=== PATIENT | female | born 1945 | race Asian ===

== ENCOUNTER → 2016-10-16 | Outpatient (CLI) | payer OTHER ==
[2016-10-16 16:05] LABS: BASO % 0.5 %; BASO ABS # 0.03 K/uL (0-0.2); COMPLETE YES; EOS % 1.8 %; HEMATOCRIT 38.6 % (37-47); IG% 0.2 %; LYMPH % 34.1 %; LYMPH ABS # 2.23 K/uL (1.2-3.4); MEAN CELL VOLUME 97.2 fL (80-100); MEAN CORPUSCULAR HGB CONC 32.9 g/dl (32-36); MEAN PLATELET VOLUME 10.5 fL (7.4-10.4); NEUT % 54.4 %; PLATELET COUNT 219 K/uL (130-400); RED BLOOD COUNT 3.97 M/uL (4.2-5.4); WHITE BLOOD COUNT 6.54 K/uL (4.8-10.8)
[2016-10-16 16:12] LABS: INR 0.9 (0.9-1.1)
[2016-10-16 16:14] LABS: ALT/SGPT 27 U/L (12-78); AST/SGOT 17 U/L (15-37); BLOOD UREA NITROGEN 14 mg/dl (7-18); BUN/CREATININE RATIO 21.2 (10-20); CALCIUM 9.1 mg/dl (8.5-10.1); CARBON DIOXIDE 31 mmol/L (21-32); CHLORIDE 104 mmol/L (98-107); CREATININE 0.67 mg/dl (0.60-1.20); GLUCOSE 123 mg/dl (70-99); POTASSIUM 4.2 mmol/L (3.5-5.1); SODIUM 140 mmol/L (136-145)
[2016-10-16 16:17] LABS: ALB/GLOB RATIO 1.3 (0.9-2); ALKALINE PHOSPHATASE 88 U/L (45-117)
== END | disposition home or self-care (01) ==
LOC: C.LABSPEC 15:19
PROVIDERS: ATTEND Family Medicine
DX: Z01.812 Encounter for preprocedural laboratory examination (principal)

== ENCOUNTER → 2017-01-14 | Outpatient (CLI) | payer OTHER ==
--- NOTE | 2017-01-15 07:36 | MAMMOGRAPHY REPORT ---
BILATERAL DIGITAL SCREENING MAMMOGRAM WITH CAD: 01/14/2017 CLINICAL HISTORY: Routine screening. Patient has no complaints. TECHNIQUE: Bilateral CC and MLO views were obtained. Current study was also evaluated with a Comput er Aided Detection (CAD) system. COMPARISON: Comparison is made to exams dated: 11/06/2015 mammogram, 10/28/2014 mammogram, 10/25/2013 m ammogram, 05/28/2012 mammogram, 04/11/2011 mammogram, and 02/01/2010 ultrasound - [facility]. BREAST COMPOSITION: The tissue of both breasts is heterogeneously dense, which may obscure small mas ses. FINDINGS: The parenchymal pattern is similar to prior mammograms. There are scattered stable benign coarse and round calcifications. No developing mass, architectural distortion or cluster of suspici ous microcalcifications is seen in either breast. IMPRESSION: ACR BI-RADS CATEGORY 2: BENIGN There is no mammographic evidence of malignancy. A 1 year screening mammogram is recommended. The pa tient will receive written notification of the results. Approximately 10% of breast cancers are not detected with mammography. A negative mammographic report should not delay biopsy if a clinically suggestive mass is present. Maryan Mukherjee M.D. ay/:01/14/2017 16:25:45 Operating Room Manager: Eunice ELLIOTT(Val)(Sheila), [facility] letter sent: Normal 1/2 BI-RADS Code: ACR BI-RADS Category 2: Benign
== END | disposition home or self-care (01) ==
LOC: C.MAMM 14:00
PROVIDERS: ATTEND Obstetrics & Gynecology
DX: Z12.31 Encounter for screening mammogram for malignant neoplasm of breast (principal)

== ENCOUNTER → 2017-06-17 | Outpatient (CLI) | payer OTHER ==
[2017-06-17 17:51] LABS: BASO % 0.7 %; BASO ABS # 0.04 K/uL (0-0.2); EOS % 2.3 %; EOS ABS # 0.13 K/uL (0-0.5); HEMOGLOBIN 12.8 g/dL (12.0-16.0); LYMPH ABS # 2.13 K/uL (1.2-3.4); MEAN CORPUSCULAR HEMOGLOBIN 32.3 pg (25-34); MEAN CORPUSCULAR HGB CONC 33.7 g/dl (32-36); MEAN PLATELET VOLUME 10.4 fL (7.4-10.4); MONO % 5.9 %; MONO ABS # 0.34 K/uL (0.11-0.59); NEUT % 54.1 %; NEUT ABS # 3.12 K/uL (1.4-6.5); PLATELET COUNT 211 K/uL (130-400); RED CELL DISTRIBUTION WIDTH CV 13.5 % (11.5-14.5); RED CELL DISTRIBUTION WIDTH SD 47.3 fL (36.4-46.3); WHITE BLOOD COUNT 5.76 K/uL (4.8-10.8)
[2017-06-17 17:55] LABS: ALBUMIN 3.8 gm/dl (3.4-5.0); ALT/SGPT 28 U/L (12-78); AST/SGOT 19 U/L (15-37); BLOOD UREA NITROGEN 12 mg/dl (7-18); CALCIUM 8.5 mg/dl (8.5-10.1); CARBON DIOXIDE 29 mmol/L (21-32); CHOLESTEROL 177 mg/dl (0-200); CREATININE 0.79 mg/dl (0.60-1.20); GLUCOSE 103 mg/dl (70-99); POTASSIUM 4.3 mmol/L (3.5-5.1); SODIUM 139 mmol/L (136-145)
[2017-06-17 18:06] LABS: ALKALINE PHOSPHATASE 80 U/L (45-117); LDL CHOLESTEROL CALCULATED 76 mg/dl; TOTAL PROTEIN 7.6 gm/dl (6.4-8.2)
[2017-06-18 06:09] LABS: HEMOGLOBIN A1C 6.3 % (4.5-5.6)
== END | disposition home or self-care (01) ==
LOC: C.LABBC 12:12
PROVIDERS: ATTEND Nurse Practitioner Adult Health
DX: E78.5 Hyperlipidemia, unspecified (principal); I10 Essential (primary) hypertension; R73.03 Prediabetes; Z00.00 Encounter for general adult medical examination without abnormal findings; E55.9 Vitamin D deficiency, unspecified

== ENCOUNTER 2022-04-17 19:45 | Inpatient (IN) ==
--- NOTE | 2022-04-17 20:07 | Emergency Department Note ---
Impression & Plan Acute hyponatremia, Gastroenteritis ED Provider Note Provider: Joe Wilde MD DATE OF SERVICE: 04/17/2022 CHIEF COMPLAINT: Nausea vomiting fatigue, abnormal blood work HISTORY OF PRESENT ILLNESS: Patient is a 76-year-old female history of type 2 diabetes, and hypertension reporting for the past week and a half or so she has had nausea and vomiting. Not eating and drinking well but denies to me any abdominal pain. Reports she has not been eating or drinking that well. Has noted no diarrhea. States her stools were initially dark but have lightened up the last day or so. Given her continued symptoms without sick contact did go and see her doctors office today. Reports has been feeling fatigued but has not passed out. Denies chest pain or shortness of breath. Had a negative home COVID test. Blood work today showed significant hyponatremia and was called back and referred here for evaluation. Reports taking her blood pressure medicine but her blood pressure has been poorly controlled with recent. PAST MEDICAL HISTORY: As noted above MEDICATIONS: Reviewed home medications includes ARB SOCIAL HISTORY: Non-smoker PHYSICAL EXAM: GENERAL: alert and oriented in no acute distress on stretcher Head: normocephalic and atraumatic EYES: No injection, discharge or icterus. NECK: Trachea midline. ENT: Mucous membranes pink and moist. LUNGS: Airway patent. No retractions. Breath sounds clear with good air entry bilaterally. HEART: Regular rate and rhythm. No chest wall tenderness ABDOMEN: Soft and non-tender, without guarding or rebound. No masses appreciated SKIN: Acyanotic, warm, dry, without rashes EXTREMITIES: Without swelling, tenderness or deformity NEUROLOGICAL: No focal deficits. No aphasia. No facial droop or slurred speech. Ambulatory. EK bpm normal sinus rhythm. No PVC or PAC. No acute ST segment elevation or depression with a QTc of 452. CONTINUOUS CARDIAC MONITORING: was ordered and showed a heart rate of 70s bpm in normal sinus Patient's laboratory studies reviewed. Differential includes gastroenteritis, infection, dehydration, metabolic abnormality, hypo/hyperglycemia, electrolyte disturbance, anemia, as well as other pathologies. IMPRESSION/MEDICAL DECISION MAKING: Patient denies any abdominal pain. Seen in the outpatient setting with a week and a half of symptoms. Fatigue with nausea and vomiting. Slight nausea now. Given some Zofran. Repeat blood work to confirm severe hyponatremia which is new. Did send osm. Urinalysis ordered. Is on an ARB. Decreased intake. Started on some gentle IV fluid rehydration. Consider CT of the abdomen pelvis but given her benign abdominal exam and no report of pain to me will defer at this time. No seizure activity or significant altered mental status at this point likely. Declines rectal exam. Hemoglobin stable. Doubt significant GI bleed. Confirmed sodium of 121. Started on some slow IV fluid hydration. Minimal troponin of 15.3 but denying active chest pain. No significant EKG changes. Doubt any significance. Lipase minimally elevated but likely co nsistent more with a gastroenteritis. Not having severe diarrhea like colitis or C. difficile. At this point given her significant low new sodium discuss staying for further care hospital. Hospitalist was contacted and discussed the case with him. DIAGNOSIS: Acute hyponatremia, gastroenteritis DISPOSITION: Hospitalist will evaluate Patient was agreeable with this plan. Past Med/Surg History Medical History (Updated 04/17/22 @ 21:42 by Joe Wilde M.D.) Arthritis Hyperlipidemia Hypertension Osteoporosis Postmenopausal Type 2 diabetes mellitus Vitamin D deficiency Surgical History History of carpal tunnel surgery RIGHT HAND History of cataract surgery BOTH EYES 2017 Family History Grandmother (Paternal) No problems noted. Mother Cardiac disorder Hypertension Myocardial infarction Brother Diabetes Hypertension Sister Hypertension Denies family history of Ovarian cancer Prostate cancer Breast cancer Lung cancer Colorectal cancer Stroke Social History Smoking Status: Never smoker Second Hand Exposure: No; Hx Alcohol Use: No Hx Substance Use: No Preferred Language: Kazakh Communication Ability: Effective Visual Impairment: Diminished Hearing Ability: Normal Surgical Services Manager Required: No marital status: / Current Living Situation: Alone current occupational status: retired Feels Safe at Home: Yes Childhood Exposure to Second-Hand Smoke: No caffeine: Yes Dental Care, Regularly: Yes Physical Activity Frequency: 3-4 Times per Week Seatbelt Use: always Sunscreen Use: Yes Do you think of yourself as: straight/heterosexual Allergies Allergies Allergy/AdvReac Type Severity Reaction Status Date / Time pollen extracts Allergy Intermediate WATERY Verified 04/17/22 20:29 EYES, RUNNY NOSE, SNEEZING Home Meds Home Medications Medication Instructions Recorded Confirmed calcium carbonate 500 mg calcium 500 mg PO DAILY 07/20/18 04/17/22 (1,250 mg) chewable tablet (Calcium 500) multivitamin (Multiple Vitamins 1 tab PO DAILY 07/20/18 04/17/22 tablet) ascorbic acid (vitamin C) 500 mg 500 mg PO BID 11/30/19 04/17/22 capsule cholecalciferol (vitamin D3) 25 2,000 unit PO DAILY 11/30/19 04/17/22 mcg (1,000 unit) tablet coenzyme Q10 100 mg capsule 100 mg PO DAILY 11/30/19 04/17/22 atorvastatin 10 mg tablet 10 mg PO HS 04/17/22 04/17/22 magnesium 250 mg tablet 250 mg PO HS 04/17/22 04/17/22 telmisartan 40 mg tablet 40 mg PO HS 04/17/22 04/17/22 Previous Rx's Medication Instructions Recorded OneTouch Ultra2 Meter #1 ea 03/24/19 (blood-glucose meter) lancets 33 gauge (OneTouch Delica #100 ea 12/17/21 Lancets) ondansetron 4 mg disintegrating 4 mg PO Q8H PRN nausea and 04/17/22 tablet vomiting #20 tabs pantoprazole 40 mg tablet,delayed 40 mg PO DAILY #30 tabs 04/17/22 release (Protonix) Results & Data (ED) Vital Signs Vital Signs - 24 hr 04/17/22 19:50 04/17/22 21:06 04/17/22 21:08 Temperature 36.5 C Temperature Source Temporal Artery Scan Pulse Rate 82 72 Pulse Rate [Left Radial] 71 Pulse Rhythm [Left Radial] Regular Pulse Strength [Left Radial] Normal Respiratory Rate 18 12 Respiratory Effort / Characteristics Non-Labored Spontaneous Non-Labored Spontaneous Respiratory Depth Normal Normal Respiratory Pattern Regular Regular Blood Pressure 194/85 H Blood Pressure [Right Arm] 149/71 H Blood Pressure Mean 121 Blood Pressure Mean [Right Arm] 97 Blood Pressure Position Sitting Pulse Oximetry 98 98 Oxygen Delivery Method Room Air Room Air Sepsis Recent Fever Within 48 Hours No Sepsis New/Unexplained Change in Mental Status N/A Sepsis Action Taken by Nursing No Action Required 04/17/22 21:54 04/17/22 22:43 Temperature Temperature Source Pulse Rate Pulse Rate [Left Radial] 71 71 Pulse Rhythm [Left Radial] Regular Regular Pulse Strength [Left Radial] Normal Normal Respiratory Rate 12 14 Respiratory Effort / Characteristics Non-Labored Spontaneous Non-Labored Spontaneous Respiratory Depth Normal Normal Respiratory Pattern Regular Regular Blood Pressure Blood Pressure [Right Arm] 158/76 H 156/74 H Blood Pressure Mean Blood Pressure Mean [Right Arm] 103 101 Blood Pressure Position Pulse Oximetry 99 99 Oxygen Delivery Method Room Air Room Air Sepsis Recent Fever Within 48 Hours Sepsis New/Unexplained Change in Mental Status Sepsis Action Taken by Nursing Laboratory Data 04/17/22 20:47 Lab Results 04/17/22 04/17/22 04/17/22 Range/Units 20:14 20:14 20:14 Sodium (136-145) mmol/L Potassium (3.5-5.1) mmol/L Chloride (98-107) mmol/L Carbon Dioxide (21-32) mmol/L Anion Gap (3-11) BUN (6-23) mg/dl Creatinine (0.6-1.2) mg/dl Est Cr Clr Drug Dosing ml/min Est GFR ( Amer) ml/min Est GFR (Non-Af Amer) ml/min BUN/Creatinine Ratio (10-20) Glucose (70-99(Fasting)) mg/dl Osmolality 261 L (280-300) mOsm/kg Calcium (8.5-10.1) mg/dl Magnesium 1.9 (1.7-2.4) mg/dl Total Bilirubin (0.2-1.0) mg/dl AST (13-39) U/L ALT (7-52) U/L Alkaline Phosphatase (34-104) U/L Troponin I High Sens 15.3 H (0-14) pg/ml Total Protein (6.0-8.3) gm/dl Albumin (3.4-5.0) gm/dl Globulin (2.5-4.0) gm/dl Albumin/Globulin Ratio (0.9-2) Lipase 132 H (11-82) U/L TSH 0.875 (0.300-4.500) uIu/ml SARS-CoV-2, RNA, NAAT (NEGATIVE) 04/17/22 04/17/22 Range/Units 20:47 21:30 Sodium 121 L (136-145) mmol/L Potassium 4.3 (3.5-5.1) mmol/L Chloride 89 L (98-107) mmol/L Carbon Dioxide 27 (21-32) mmol/L Anion Gap 5 (3-11) BUN 8 (6-23) mg/dl Creatinine 0.70 (0.6-1.2) mg/dl Est Cr Clr Drug Dosing 62.1 ml/min Est GFR ( Amer) 98.9 ml/min Est GFR (Non-Af Amer) 85.4 ml/min BUN/Creatinine Ratio 11.4 (10-20) Glucose 217 H (70-99(Fasting)) mg/dl Osmolality (280-300) mOsm/kg Calcium 8.9 (8.5-10.1) mg/dl Magnesium (1.7-2.4) mg/dl Total Bilirubin 0.7 (0.2-1.0) mg/dl AST 23 (13-39) U/L ALT 21 (7-52) U/L Alkaline Phosphatase 63 (34-104) U/L Troponin I High Sens (0-14) pg/ml Total Protein 7.2 (6.0-8.3) gm/dl Albumin 4.4 (3.4-5.0) gm/dl Globulin 2.8 (2.5-4.0) gm/dl Albumin/Globulin Ratio 1.6 (0.9-2) Lipase (11-82) U/L TSH (0.300-4.500) uIu/ml SARS-CoV-2, RNA, NAAT NEGATIVE (NEGATIVE) Administered Medications Sodium Chloride (Nss) 500 mls @ 80 mls/hr IV .Q6H15M SMILEY Stop: 05/17/22 21:29 Last Admin: 04/17/22 21:28 Dose: 80 mls/hr Documented By: LILIAM Discontinued Medications Ondansetron HCl (Ondansetron Inj 2 Mg/Ml 2 Ml Vial) 4 mg IV NOW STA Stop: 04/17/22 20:45 Last Admin: 04/17/22 20:51 Dose: 4 mg Documented By: LILIAM Discharge Plan Visit Data Chief Complaint: Abnormal Labs/Diagnostic Testing Stated Complaint: REF BY DOC,ABNORMAL LABS ED Provider: Joe Wilde Discharge Problem: Acute hyponatremia, Gastroenteritis Patient Disposition: Being Evaluated by Hospitalist Forms Stand Alone Forms: [facility] Prescriptions Prescriptions: No Action (DME) lancets [OneTouch Delica Lancets] 33 gauge [facility] [place] See Rx Instructions .ROUTE .MEDSUPPLY Qty: 100 3RF Rx Instructions: USE TO TEST Blood Sugars twice a Day DX: E11.9 ascorbic acid (vitamin C) 500 mg capsule 500 mg PO BID coenzyme Q10 100 mg capsule 100 mg PO DAILY cholecalciferol (vitamin D3) 25 mcg (1,000 unit) tablet 2,000 unit PO DAILY calcium carbonate [Calcium 500] 500 mg calcium (1,250 mg) tablet,chewable 500 mg PO DAILY multivitamin [Multiple Vitamins] tablet 1 tab PO DAILY (DME) blood-glucose meter [C[employer]uch Ultra2 Meter] [facility] See Rx Instructions .ROUTE .MEDSUPPLY Qty: 1 0RF Rx Instructions: TEST ONCE DAILY AND PRN. DX: E11.9 pantoprazole [Protonix] 40 mg tablet,delayed release (DR/EC) 40 mg PO DAILY Qty: 30 2RF ondansetron 4 mg tablet,disintegrating 4 mg PO Q8H PRN (Reason: nausea and vomiting) Qty: 20 0RF atorvastatin 10 mg tablet 10 mg PO HS Rx Instructions: 1 TABLET AT BEDTIME telmisartan 40 mg tablet 40 mg PO HS magnesium 250 mg Tablet 250 mg PO HS Referrals Referrals: Prashant Fabian DO [Primary Care Provider] -
[2022-04-17] MEDS ORDERED: ONDANSETRON INJ 2 MG/ML 2 ML VIAL IV STA (20:44)
[2022-04-17 20:53] LABS: Magnesium 1.9 mg/dl (1.7-2.4)
[2022-04-17 21:01] LABS: Troponin I High Sensitivity 15.3 pg/ml (0-14)
[2022-04-17 21:15] LABS: Albumin Globulin Ratio 1.6 (0.9-2); Albumin Level 4.4 gm/dl (3.4-5.0); BUN Creatinine Ratio 11.4 (10-20); Bilirubin,Total 0.7 mg/dl (0.2-1.0); Calcium 8.9 mg/dl (8.5-10.1); Creatinine Clr Calc Pharmacy 62.1 ml/min; Est GFR (African American) 98.9 ml/min; Est GFR (Non-African American) 85.4 ml/min; Globulin 2.8 gm/dl (2.5-4.0); Potassium 4.3 mmol/L (3.5-5.1); Total Protein 7.2 gm/dl (6.0-8.3)
[2022-04-17] MEDS: SODIUM CHLORIDE 0.9% 500 ML IV SCH (21:28)
[2022-04-17] MEDS ORDERED: ONDANSETRON INJ 2 MG/ML 2 ML VIAL IV PRN (23:21)
[2022-04-17] MEDS ORDERED: ACETAMINOPHEN 325 MG TAB PO PRN (23:21)
[2022-04-17 23:50] LABS: Appearance Urine Clear (Clear); Bacteria Urine Automated Negative (Negative); Bilirubin Urine Negative (Negative); Blood Urine Negative (Negative); Cast Urine Automated 0 /lpf (0-5); Color Urine Yellow; Glucose Urine UA Negative (Negative); Ketones Urine Negative (Negative); Leukocyte Esterase Urine Trace (Negative); Nitrite Urine Negative (Negative); Protein Urine Negative (Negative); RBC Urine Automated 0-4 /hpf (0-4); Specific Gravity Urine 1.005 (1.000-1.030); Urobilinogen Urine Negative (Negative); WBC Urine Automated 0 /hpf (0-5)
--- NOTE | 2022-04-18 00:10 | History & Physical Report ---
Date of Service April 17, 2022 Assessment & Plan (1) Acute hyponatremia: Plan: Patient presents to ED with complaints of poor p.o. intake associated with intermittent nausea and occasional vomiting and loose stools over the past week Labs indicate serum sodium level of 121 with physical examination indicating hypovolemia. Hyponatremia likely secondary to hypovolemic hyponatremia in this patient Follow urine electrolytes including sodium level which anticipate will show low serum sodium level with low fractional excretion of sodium consistent with volume depletion Patient started on IV fluids with isotonic saline We will check serum sodium level and 4 hours and again in a.m. to ensure that the anticipated of correction is within 8 to 10 mEq over the 24-hour. As duration hyponatremia is unknown at this time Monitor hemodynamics closely (2) Hypertension: Plan: Continue patient's home dose of angiotensin receptor greer, telmisartan 40 mg daily Monitor blood pressure trend titrate meds as tolerated (3) Type 2 diabetes mellitus: Plan: Patient will be placed on sliding scale coverage short acting insulin based on fingerstick monitoring Hold oral hypoglycemics while inpatient Hemoglobin A1c level Pharmacist initiated glycemic control protocol will be initiated (4) Gastroenteritis: Plan: Patient reports vague symptoms of poor p.o. intake associated with loose stools and nausea vomiting Suspect etiology to be viral as it seems to be improving If patient continues to have loose stools will consider sending stool studies No recent history of antibiotic use reported by patient (5) Hyperlipidemia: Plan: Continue statin therapy with atorvastatin times daily Plan DVT prophylaxis-subcu heparin CODE STATUS full code Disposition PCU Diet heart healthy ADA diet History of Present Illness Chief Complaint: Patient presents with complaints of nausea vomiting associated with abnormal sodium level Primary Care Provider: Prashant Fabian DO This is a 76-year-old female with past medical history significant for history of hypertension, type 2 diabetes, who presents to the emergency department with complaints of abnormal labs comprising of low serum sodium associated with nausea vomiting and poor p.o. intake over the past week. Patient reports that she has been feeling increasing fatigue with poor p.o. intake associated with nausea that has been present over the last week. The symptoms are persisting hence patient saw her PCP who did some blood work and noted that patient's sodium was low and advised the patient to present to ED for further evaluation. Patient describes some loose stools that was initially described to be dark but had cleared up over the past 2 days. Patient otherwise denies any fevers or chills. Patient presents to the ED and was evaluated and was found to have a low serum sodium level of 121 and found to have evidence of poor p.o. intake with dry mucosa and started on IV fluids. Her BUN is 8 creatinine 0.7 potassium is 4.3 and LFTs were not elevated including transaminases with ALT within normal limits. Patient's blood glucose was 270 and patient does report urinary frequency patient is presently being admitted for further management of her hyponatremia in the context of poor Po intake and volume depletion Allergies Allergy/AdvReac Type Severity Reaction Status Date / Time pollen extracts Allergy Intermediate WATERY Verified 04/17/22 20:29 EYES, RUNNY NOSE, SNEEZING Home Medications Medication Instructions Recorded Confirmed Type calcium carbonate 500 mg calcium 500 mg PO DAILY 07/20/18 04/17/22 History (1,250 mg) chewable tablet (Calcium 500) multivitamin (Multiple Vitamins 1 tab PO DAILY 07/20/18 04/17/22 History tablet) LEYIOuch Ultra2 Meter #1 ea 03/24/19 04/17/22 Rx (blood-glucose meter) ascorbic acid (vitamin C) 500 mg 500 mg PO BID 11/30/19 04/17/22 History capsule cholecalciferol (vitamin D3) 25 2,000 unit PO DAILY 11/30/19 04/17/22 History mcg (1,000 unit) tablet coenzyme Q10 100 mg capsule 100 mg PO DAILY 11/30/19 04/17/22 History lancets 33 gauge (OneTouch Delica #100 ea 12/17/21 04/17/22 Rx Lancets) atorvastatin 10 mg tablet 10 mg PO HS 04/17/22 04/17/22 History magnesium 250 mg tablet 250 mg PO HS 04/17/22 04/17/22 History ondansetron 4 mg disintegrating 4 mg PO Q8H PRN nausea and 04/17/22 04/17/22 Rx tablet vomiting #20 tabs pantoprazole 40 mg tablet,delayed 40 mg PO DAILY #30 tabs 04/17/22 04/17/22 Rx release (Protonix) telmisartan 40 mg tablet 40 mg PO HS 04/17/22 04/17/22 History Past Med/Surg History Medical History (Updated 04/17/22 @ 21:42 by Joe Wilde M.D.) Arthritis Hyperlipidemia Hypertension Osteoporosis Postmenopausal Type 2 diabetes mellitus Vitamin D deficiency Surgical History History of carpal tunnel surgery RIGHT HAND History of cataract surgery BOTH EYES 2017 Family History Grandmother (Paternal) No problems noted. Mother Cardiac disorder Hypertension Myocardial infarction Brother Diabetes Hypertension Sister Hypertension Denies family history of Ovarian cancer Prostate cancer Breast cancer Lung cancer Colorectal cancer Stroke Social History Smoking Status: Never smoker Second Hand Exposure: No; Hx Alcohol Use: No Hx Substance Use: No Preferred Language: Montserratian Communication Ability: Effective Visual Impairment: Diminished Hearing Ability: Normal [facility] Manager Required: No Beliefs That Will Affect Care: None marital status: / Current Living Situation: Alone current occupational status: retired Feels Safe at Home: Yes Childhood Exposure to Second-Hand Smoke: No caffeine: Yes Dental Care, Regularly: Yes Physical Activity Frequency: 3-4 Times per Week Seatbelt Use: always Sunscreen Use: Yes Do you think of yourself as: straight/heterosexual Assistive Devices: None Review of Systems Review of Systems: Constitutional-no fever or chills ENT-no blurred vision, no double vision, Respiratory- no shortness of breath noted with exertion. No wheezing Cardiac-no palpitations, no chest pain, GI-intermittent nausea occasional vomiting poor p.o. intake - no hematuria increased frequency Musculoskeletal-no joint pain, no muscle tenderness Skin-no bruising, no rashes, no pruritus Neuro-no isolated weakness Physical Exam Physical Exam: Head and ENT no thyroid enlargement trachea midline Dry oral mucosa noted Cardiovascular S1-S2 are normal no S3 Lungs bilateral air entry fair no wheezing Abdomen soft nondistended positive bowel sounds no rebound tenderness Extremity shows trace edema Neurologically no focal deficits Skin shows no rash no cyanosis Results & Data Results & Data ([facility]) Vital Signs (Past 12 Hours) Vital Signs Temp Pulse Pulse Resp BP BP Pulse Ox 04/17/22 23:48 70 16 125/82 99 04/17/22 22:43 71 14 156/74 H 99 04/17/22 21:54 71 12 158/76 H 99 04/17/22 21:08 72 04/17/22 21:06 71 12 149/71 H 98 04/17/22 19:50 36.5 C 82 18 194/85 H 98 O2 Del Method 04/17/22 23:48 Room Air 04/17/22 22:43 Room Air 04/17/22 21:54 Room Air 04/17/22 21:08 04/17/22 21:06 Room Air 04/17/22 19:50 Room Air Diagnostic Findings Short CBC 04/18/22 04/18/22 Range/Units 00:40 06:30 WBC 6.38 6.14 (4.8-10.8) K/ul Hgb 12.3 12.4 (12.0-16.0) g/dl Hct 33.6 L 34.1 L (37.0-47.0) % Plt Count 226 215 (130-400) K/uL BMP 04/17/22 04/18/22 04/18/22 20:47 00:40 06:30 Sodium 121 L 125 L 125 L Potassium 4.3 4.4 4.2 Chloride 89 L 94 L 96 L Carbon Dioxide 27 25 23 BUN 8 6 6 Creatinine 0.70 0.72 0.65 Glucose 217 H 88 96 Calcium 8.9 8.8 8.7 Liver Function 04/17/22 Range/Units 20:47 Total Bilirubin 0.7 (0.2-1.0) mg/dl AST 23 (13-39) U/L ALT 21 (7-52) U/L Alkaline Phosphatase 63 (34-104) U/L Albumin 4.4 (3.4-5.0) gm/dl Urine 04/17/22 Range/Units 23:15 Urine Color Yellow Urine Appearance Clear (Clear) Urine pH 8.0 H (4.5-7.5) Ur Specific [place] 1.005 (1.000-1.030) Urine Protein Negative (Negative) Urine Glucose (UA) Negative (Negative) Code Status & VTE Plan VTE Prophylaxis Plan VTE Prophylaxis will be ordered: Yes PG Care Time/CCT Total # of Minutes Spent Total Time Spent with Patient: Total time spent is greater than 50% in coordination of care (as documented) at patient's floor/unit and/or counseling patient: Coding Level of Care Code 53912 INT INP/OBS CARE 2/55MIN Diagnoses Acute hyponatremia E87.1 Hypertension I10 Type 2 diabetes mellitus E11.9 Gastroenteritis K52.9 Hyperlipidemia E78.5
[2022-04-18] MEDS ORDERED: GLUCAGON FOR INJ 1 MG VIAL SQ PRN (00:14)
[2022-04-18] MEDS ORDERED: DEXTROSE 50% 50 ML SYRINGE IV PRN (00:14)
[2022-04-18] MEDS ORDERED: GLUCOSE 40% GEL 15 GM TUBE PO PRN (00:14)
[2022-04-18] MEDS ORDERED: PHARMACY GLYCEMIC MGMT CONSULT PRN (00:14)
[2022-04-18] MEDS ORDERED: GLUCOSE 10 TAB/TUBE PO PRN (00:14)
[2022-04-18] MEDS ORDERED: CARBOHYDRATES FOR HYPOGLYCEMIA PO PRN (00:14)
[2022-04-18] MEDS ORDERED: TELMISARTAN 40 MG TAB PO SCH ×2 (01:20→21:00)
[2022-04-18 01:41] LABS: Hematocrit (blood only) 33.6 % (37.0-47.0); Hemoglobin 12.3 g/dl (12.0-16.0); Mean Corpuscular Hemoglobin 32.5 pg (25.0-34.0); Mean Corpuscular Hgb Conc 36.6 g/dL (32.0-36.0); Mean Corpuscular Volume 88.7 fL (80.0-100.0); Platelet Count 226 K/uL (130-400); RDW Coefficient of Variation 11.9 % (11.5-14.5); RDW Standard Deviation 38.1 fL (36.4-46.3); Red Blood Count 3.79 M/uL (4.20-5.40); White Blood Count 6.38 K/ul (4.8-10.8)
[2022-04-18] MEDS: LOSARTAN POTASSIUM 50 MG TAB PO SCH ×2 (01:56→22:13)
[2022-04-18] MEDS: ATORVASTATIN 10 MG TAB PO SCH ×2 (01:56→22:13)
[2022-04-18 01:57] LABS: BUN Creatinine Ratio 8.3 (10-20); Calcium 8.8 mg/dl (8.5-10.1); Est GFR (African American) 95.6 ml/min; Est GFR (Non-African American) 82.5 ml/min; Potassium 4.4 mmol/L (3.5-5.1)
[2022-04-18] MEDS: SODIUM CHLORIDE 0.9% 500 ML IV SCH ×4 (04:48→23:40)
[2022-04-18 06:46] LABS: Hematocrit (blood only) 34.1 % (37.0-47.0); Hemoglobin 12.4 g/dl (12.0-16.0); Mean Corpuscular Hemoglobin 32.3 pg (25.0-34.0); Mean Corpuscular Hgb Conc 36.4 g/dL (32.0-36.0); Mean Corpuscular Volume 88.8 fL (80.0-100.0); Mean Platelet Volume 8.6 fL (9.4-12.4); Platelet Count 215 K/uL (130-400); RDW Coefficient of Variation 11.8 % (11.5-14.5); RDW Standard Deviation 37.7 fL (36.4-46.3); Red Blood Count 3.84 M/uL (4.20-5.40); White Blood Count 6.14 K/ul (4.8-10.8)
[2022-04-18 07:10] LABS: BUN Creatinine Ratio 9.2 (10-20); Calcium 8.7 mg/dl (8.5-10.1); Creatinine Clr Calc Pharmacy 67.2 ml/min; Est GFR (African American) 101.4 ml/min; Est GFR (Non-African American) 87.5 ml/min; Potassium 4.2 mmol/L (3.5-5.1)
[2022-04-18 08:18] LABS: Estimated Average Glucose 160 mg/dl; Hemoglobin A1C 7.2 % (4.5-5.6)
[2022-04-18] MEDS: INSULIN ASPART PER UNIT SC SCH ×4 (08:55→22:07)
[2022-04-18] MEDS: HEPARIN SOD 5,000 UNIT/0.5 ML VIAL SQ SCH ×2 (08:57→22:12)
[2022-04-18] MEDS: PANTOprazole 40 MG TAB PO SCH (08:58)
--- NOTE | 2022-04-18 12:03 | Pharmacy Report ---
Pharmacy Glycemic Short Note 2 - Date of Service April 18, 2022 - Glycemic Short BSG Results (Last 24 hours): 04/17/22 04/18/22 04/18/22 20:47 00:15 00:40 Glucose 217 H 88 POC Glucose 103 H 04/18/22 04/18/22 04/18/22 06:30 07:24 11:09 Glucose 96 POC Glucose 97 127 H OUTPATIENT ANTIDIABETIC REGIMEN: * No outpt meds for DM * A1c = 7.2% 04/18/22 ASSESSMENT: * Type 2 diabetic admitted for NVD, acute hypovolemic hyponatremia * Patient's BSG was acutely elevated into low 200s on admission but has since been 120s or less. * Will hold basal insulin at this time and trial Novolog correction only as patient is refusing prandial doses. PLAN FOR INPATIENT GLYCEMIC CONTROL: * Basal insulin * none * Bolus insulin * NovoLog per scale ACHS or Q6hrs while NPO * Goal Range: Low 110 mg/dL - High 160 mg/dL * Correction Factor: 35 mg/dL/unit * Nutritional / Prandial insulin per carb ratio: none
--- NOTE | 2022-04-18 12:40 | Electrocardiogram Report ---
Test Reason : Blood Pressure : / mmHG Vent. Rate : 077 BPM Atrial Rate : 077 BPM P-R Int : 192 ms QRS Dur : 076 ms QT Int : 400 ms P-R-T Axes : 057 004 040 degrees QTc Int : 452 ms Poor data quality, interpretation may be adversely affected Normal sinus rhythm Normal ECG No previous ECGs available Confirmed by Eduardo Ventura ([id number]) on 04/18/2022 12:40:44 PM Referred By: Prashant Fabian Confirmed By:Eduardo Ventura
--- NOTE | 2022-04-18 14:29 | Hospitalist Progress Note ---
Date of Service April 18, 2022 Assessment & Plan (1) Acute hyponatremia: Plan: Patient was admitted with complaints of poor p.o. intake associated with intermittent nausea and occasional vomiting and loose stools over the past week Went to see her PCP who diagnosed hyponatremia and asked her to come to the hospital Labs indicate serum sodium level of 121 Hyponatremia likely secondary to hypovolemic hyponatremia in this patient Plasma and urine osmolality indicate hypovolemic hyponatremia Patient started on IV fluids with isotonic saline Repeat Na today 125 Will continue sodium replacement, goal is not more than 10meq/day increase (2) Hypertension: Plan: Continue patient's home dose of angiotensin receptor greer, telmisartan 40 mg daily Monitor blood pressure trend titrate meds as tolerated (3) Type 2 diabetes mellitus: Plan: Patient will be placed on sliding scale coverage short acting insulin based on fingerstick monitoring Hold oral hypoglycemics while inpatient Hemoglobin A1c level Pharmacist initiated glycemic control protocol will be initiated (4) Gastroenteritis: Plan: resolving (5) Hyperlipidemia: Plan: Continue statin therapy with atorvastatin times daily Plan DVT prophylaxis-subcu heparin CODE STATUS full code Hopefully d/c in the next 24-48 hrs Admission and Anticipated Discharge Date Admission Date: April 17, 2022 Subjective patient seen and examined, complains of mild epigastric discomfort and leg cramps Review of Systems Review of Systems: All systems reviewed are negative, apart from the ones contained in the history. Physical Exam Physical Exam: The patient is awake, alert and oriented 3, well developed and well nourished, normocephalic and atraumatic, lying in bed and in no acute distress. HEENT--PERRL, EOMI, mucous membranes and oropharynx mildly dry Neck--supple. No JVD. No bruits. Thyroid normal, trachea midline, no adenopathy. Heart--normal S1 and S2. No murmurs, rubs or gallops. Lungs--clear bilaterally, no respiratory distress, no accessory muscle use. Abdomen--normal bowel sounds and soft. Mild epigastric and left sided abdominal pain Extremities--no cyanosis or clubbing. No edema. Dermatologic--normal skin turgor, normal color, no abnormal lymph nodes, no rash. Neurologic--cranial nerves II through XII grossly intact. Rheumatologic--normal range of motion. Psychiatric--normal affect. Results & Data Results & Data ([facility]) Vital Signs (Past 12 Hours) Vital Signs Temp Pulse Pulse Resp BP Pulse Ox O2 Del Method 04/18/22 11:42 97.9 F 68 19 126/62 97 Room Air 04/18/22 07:50 98.2 F 75 17 155/75 H 98 Room Air 04/18/22 07:46 73 04/18/22 02:56 98.2 F 66 16 129/60 97 Room Air PG Care Time/CCT Total # of Minutes Spent Total Time Spent with Patient: Total time spent is greater than 50% in coordination of care (as documented) at patient's floor/unit and/or counseling patient: Coding Level of Care Code 43798 SUB INP/OBS CARE 2/35MIN Diagnoses Acute hyponatremia E87.1 Hypertension I10 Type 2 diabetes mellitus E11.9 Gastroenteritis K52.9 Hyperlipidemia E78.5 Time Spent (min) 35
[2022-04-18] MEDS ORDERED: ATORVASTATIN 10 MG TAB PO SCH (21:00)
[2022-04-19] MEDS: SODIUM CHLORIDE 0.9% 500 ML IV SCH (06:00)
[2022-04-19 06:16] LABS: Hematocrit (blood only) 30.6 % (37.0-47.0); Mean Corpuscular Hemoglobin 32.4 pg (25.0-34.0); Mean Corpuscular Hgb Conc 35.9 g/dL (32.0-36.0); Mean Platelet Volume 8.7 fL (9.4-12.4); Platelet Count 190 K/uL (130-400); RDW Coefficient of Variation 11.9 % (11.5-14.5); RDW Standard Deviation 39.2 fL (36.4-46.3); White Blood Count 5.53 K/ul (4.8-10.8)
[2022-04-19 06:44] LABS: BUN Creatinine Ratio 13.2 (10-20); Creatinine Clr Calc Pharmacy 57.4 ml/min; Est GFR (African American) 89.6 ml/min; Est GFR (Non-African American) 77.3 ml/min; Potassium 4.4 mmol/L (3.5-5.1)
[2022-04-19] MEDS: INSULIN ASPART PER UNIT SC SCH (08:53)
[2022-04-19] MEDS: PANTOprazole 40 MG TAB PO SCH (08:55)
[2022-04-19] MEDS: HEPARIN SOD 5,000 UNIT/0.5 ML VIAL SQ SCH (09:08)
--- NOTE | 2022-04-19 13:40 | Discharge Summary ---
Date of Service April 19, 2022 Admission HPI Per Admitting Provider This is a 76-year-old female with past medical history significant for history of hypertension, type 2 diabetes, who presents to the emergency department with complaints of abnormal labs comprising of low serum sodium associated with nausea vomiting and poor p.o. intake over the past week. Patient reports that she has been feeling increasing fatigue with poor p.o. intake associated with nausea that has been present over the last week. The symptoms are persisting hence patient saw her PCP who did some blood work and noted that patient's sodium was low and advised the patient to present to ED for further evaluation. Patient describes some loose stools that was initially described to be dark but had cleared up over the past 2 days. Patient otherwise denies any fevers or chills. Patient presents to the ED and was evaluated and was found to have a low serum sodium level of 121 and found to have evidence of poor p.o. intake with dry mucosa and started on IV fluids. Her BUN is 8 creatinine 0.7 potassium is 4.3 and LFTs were not elevated including transaminases with ALT within normal limits. Patient's blood glucose was 270 and patient does report urinary frequency patient is presently being admitted for further management of her hyponatremia in the context of poor Po intake and volume depletion Principal Diagnosis acute symptomatic hyponatremia Discharge Exam The patient is awake, alert and oriented 3, well developed and well nourished, normocephalic and atraumatic, lying in bed and in no acute distress. HEENT--PERRL, EOMI, mucous membranes and oropharynx mildly dry Neck--supple. No JVD. No bruits. Thyroid normal, trachea midline, no adenopathy. Heart--normal S1 and S2. No murmurs, rubs or gallops. Lungs--clear bilaterally, no respiratory distress, no accessory muscle use. Abdomen--normal bowel sounds and soft. Mild epigastric and left sided abdominal pain Extremities--no cyanosis or clubbing. No edema. Dermatologic--normal skin turgor, normal color, no abnormal lymph nodes, no rash. Neurologic--cranial nerves II through XII grossly intact. Rheumatologic--normal range of motion. Psychiatric--normal affect. Discharge Data Allergies Allergy/AdvReac Type Severity Reaction Status Date / Time pollen extracts Allergy Intermediate WATERY Verified 04/17/22 20:29 EYES, RUNNY NOSE, SNEEZING Consultations 04/17/22 21:59 ED Decision to Admit Stat Hospital Course (1) Acute hyponatremia: Patient was admitted with complaints of poor p.o. intake associated with intermittent nausea and occasional vomiting and loose stools over the past week Went to see her PCP who diagnosed with acute symptomatic hyponatremia and asked her to come to the hospital Labs indicate serum sodium level of 121 Hyponatremia likely secondary to hypovolemic hyponatremia in this patient Plasma and urine osmolality indicate hypovolemic hyponatremia Patient started on IV fluids with isotonic saline Repeat Na today 136 d/c home (2) Hypertension: Continue patient's home dose of angiotensin receptor greer, telmisartan 40 mg daily Monitor blood pressure trend titrate meds as tolerated (3) Type 2 diabetes mellitus: Patient will be placed on sliding scale coverage short acting insulin based on fingerstick monitoring Hold oral hypoglycemics while inpatient Hemoglobin A1c level Pharmacist initiated glycemic control protocol will be initiated (4) Gastroenteritis: resolving (5) Hyperlipidemia: Continue statin therapy with atorvastatin times daily Plan d/c home Total Time Total Time Spent Total Time Spent (In Minutes): 35 Discharge Plan Discharge Items Patient Disposition: Home - Self-Care Reason For Visit: HYPONATREMIA Discharge Diagnosis: Hyponatremia-resolved Activity: Resume your previous activity Non-emergency contact: Primary Care Provider Call non-emergency contact if: you have any medication questions Follow-up/Referrals: Prashant Fabian DO [Primary Care Provider] - 04/29/22 11:00 am (will be seen by Erwin ULLOA) Diet: Regular Addtl Attending Provider Instructions: please follow up with your regular PCP Pending Studies at Discharge: No Stand-Alone Forms: My [facility] [employer], Smoking Cessation Medications and DC Order Prescriptions: Continued (DME) lancets [OneTouch Delica Lancets] 33 gauge misc See Rx Instructions .ROUTE .MEDSUPPLY Qty: 100 3RF Rx Instructions: USE TO TEST Blood Sugars twice a Day DX: E11.9 ascorbic acid (vitamin C) 500 mg capsule 500 mg PO BID coenzyme Q10 100 mg capsule 100 mg PO DAILY cholecalciferol (vitamin D3) 25 mcg (1,000 unit) tablet 2,000 unit PO DAILY calcium carbonate [Calcium 500] 500 mg calcium (1,250 mg) tablet,chewable 500 mg PO DAILY multivitamin [Multiple Vitamins] tablet 1 tab PO DAILY (DME) blood-glucose meter [OneTouch Ultra2 Meter] Misc See Rx Instructions .ROUTE .MEDSUPPLY Qty: 1 0RF Rx Instructions: TEST ONCE DAILY AND PRN. DX: E11.9 pantoprazole [Protonix] 40 mg tablet,delayed release (DR/EC) 40 mg PO DAILY Qty: 30 2RF ondansetron 4 mg tablet,disintegrating 4 mg PO Q8H PRN (Reason: nausea and vomiting) Qty: 20 0RF atorvastatin 10 mg tablet 10 mg PO HS Rx Instructions: 1 TABLET AT BEDTIME telmisartan 40 mg tablet 40 mg PO HS magnesium 250 mg Tablet 250 mg PO HS Discharge Orders: Discharge Order (Routine); Ordered 04/19/22 Ordered By: Gabriel Harding Admission Data Admit Date/Time: 04/17/22 23:22 Attending Provider: Gabriel Harding Admit Provider: Alexis Romero Primary Care Provider: Prashant Fabian Other Providers: Alexis Romero Other Interventions: Discharge Summary Assessment (RN) Last Done: 04/19/22 09:04 Coding Level of Care Code 05423 INP/OBS DISCH >30 MIN Diagnoses Acute hyponatremia E87.1 Hypertension I10 Type 2 diabetes mellitus E11.9 Gastroenteritis K52.9 Hyperlipidemia E78.5 Time Spent (min) 35
== END 2022-04-19 10:30 | disposition home or self-care (01) | DRG 641 ==
LOC: ED 19:45 → SUATTDRO 23:22 → 2E 23:22